=== PATIENT | female | born 1970 | race Caucasian/White ===

== ENCOUNTER 2018-12-14 13:56 | Outpatient (CLI) | payer OTHER ==
[2018-12-14] MEDS ORDERED: LOSA25TA25 PO (14:31)
== END 2018-12-14 23:59 | disposition home or self-care (01) ==
LOC: STAR 13:56
PROVIDERS: ATTEND Specialist
DX: Z02.9 Encounter for administrative examinations, unspecified (principal)

== ENCOUNTER 2018-12-19 05:36 | Day surgery (SDC) | payer OTHER ==
[~2018-12-19] VITALS: Ht 166.4 cm; Wt 77.5 kg
[~2018-12-19 05:36] MED LIST: LOSA25TA25 PO
[2018-12-19 06:40] LABS: HCG UR SG 1.023 (1.003-1.030)
[2018-12-19] MEDS ORDERED: LACTATED RINGERS 1,000 ML IV SCH (06:42)
[2018-12-19] MEDS ORDERED: BUPIVACAINE/PF 0.25% ONE (06:50)
[2018-12-19] MEDS ORDERED: FLUORESCEIN SODIUM 500 MG/5 ML ONE (07:12)
[2018-12-19] MEDS ORDERED: GABAPENTIN 300 MG CAPSULE ONE (07:16)
[2018-12-19] MEDS ORDERED: MIDAZOLAM 1 MG/ML, 2ML ONE (07:16)
[2018-12-19] MEDS ORDERED: FENTANYL PF 250 MCG/5ML ONE (07:17)
[2018-12-19] MEDS ORDERED: ROCURONIUM 10MG/ML,5ML ONE (07:17)
[2018-12-19] MEDS ORDERED: PROPOFOL 10 MG/ML, 20ML ONE (07:18)
[2018-12-19] MEDS ORDERED: SUCCINYLCHOLINE 20 MG/ML, 10ML ONE (07:18)
[2018-12-19 07:19] LABS: ALBUMIN 3.9 g/dL (3.4-5.0); ANION GAP 5 mmol/L (5-15); CALCIUM 9.2 mg/dL (8.5-10.1); CHLORIDE 107 mmol/L (98-107)
[2018-12-19] MEDS ORDERED: LIDOCAINE-MPF 2% ,5ML ONE (07:19)
[2018-12-19] MEDS ORDERED: DEXAMETHASONE 4 MG/ML, 1ML ONE (07:22)
[2018-12-19 07:23] LABS: CREATININE 0.88 mg/dL (0.55-1.02)
[2018-12-19 07:24] LABS: ALANINE AMINOTRANSFERASE 15 U/L (12-78); ALKALINE PHOSPHATASE 48 U/L (45-117); BILIRUBIN,TOTAL 0.4 mg/dL (0.2-1.0); TOTAL PROTEIN 7.3 g/dL (6.4-8.2)
[2018-12-19] MEDS ORDERED: GABAPENTIN 300 MG CAPSULE PO ONE (07:30)
[2018-12-19] MEDS ORDERED: ACETAMINOPHEN 500 MG TABLET PO ONE ×2 (07:30→13:00)
[2018-12-19] MEDS ORDERED: DIAZEPAM 5 MG TABLET PO ONE (07:30)
[2018-12-19] MEDS ORDERED: SCOPOLAMINE PATCH, 1.5MG PATCH.TD72 TD ONE (07:30)
[2018-12-19] MEDS ORDERED: GLYCOPYRROLATE 0.2MG/1ML, 5ML ONE (07:34)
[2018-12-19] MEDS ORDERED: NEOSTIGMINE 1 MG/ML, 10ML ONE (07:34)
[2018-12-19] MEDS ORDERED: CEFOTETAN 2 GM ONE (07:34)
[2018-12-19] MEDS ORDERED: KETOROLAC 30 MG/1 ML ONE (07:34)
[2018-12-19] MEDS ORDERED: PROMETHAZINE 25 MG/ML, 1ML IV PRN (08:00)
[2018-12-19] MEDS ORDERED: EPHEDRINE 50 MG/ML, 1ML IVPush PRN (08:00)
[2018-12-19] MEDS ORDERED: FENTANYL PF 100 MCG/2ML IV PRN (08:00)
[2018-12-19] MEDS ORDERED: HALOPERIDOL 5 MG/ML IV PRN (08:00)
[2018-12-19] MEDS ORDERED: hydrALAzine 20 MG/ML, 1ML IV PRN (08:00)
[2018-12-19] MEDS ORDERED: MORPHINE SULFATE 4 MG/ML, 1ML IVPush PRN (08:00)
[2018-12-19] MEDS ORDERED: ONDANSETRON 2MG/ML, 2ML IV PRN (08:00)
[2018-12-19] MEDS ORDERED: OXYcodone 5 MG/5 ML ORAL.SOL UDC PO PRN (08:00)
[2018-12-19] MEDS ORDERED: PROMETHAZINE 12.5 MG SUPP PR PRN (08:00)
[2018-12-19] MEDS ORDERED: LABETALOL 5MG/ML, 20ML IV PRN (08:00)
[2018-12-19] MEDS ORDERED: ALBUTEROL SULFATE 2.5 MG/3 ML NPPB PRN (08:00)
[2018-12-19] MEDS ORDERED: LORazepam 2 MG/ML, 1ML IVPush PRN (08:00)
[2018-12-19] MEDS ORDERED: MEPERIDINE/PF 25MG/0.5ML IVPush PRN (08:00)
[2018-12-19] MEDS ORDERED: ONDANSETRON ODT 8 MG PO PRN (08:00)
[2018-12-19] MEDS ORDERED: MIDAZOLAM 1 MG/ML, 2ML IV PRN (08:00)
[2018-12-19] MEDS ORDERED: ONDANSETRON 2MG/ML, 2ML ONE (09:17)
[2018-12-19] MEDS ORDERED: FENTANYL PF 100 MCG/2ML ONE (09:21)
[2018-12-19] MEDS ORDERED: MEPERIDINE/PF 25MG/ML,1ML ONE (09:49)
[2018-12-19] MEDS ORDERED: OXYcodone 5 MG/5 ML ORAL.SOL UDC ONE (09:50)
[2018-12-19] MEDS ORDERED: HYDROmorphone 1 MG/ML, 1ML VIAL ONE (09:50)
[2018-12-19] MEDS: HYDROmorphone 2 MG/ML, 1ML IVPush PRN ×2 (09:59→10:10)
[2018-12-19] MEDS ORDERED: LORazepam 2 MG/ML, 1ML ONE (10:01)
[2018-12-19] MEDS ORDERED: OXYcodone/APAP 5/325MG TABLET PO PRN (12:00)
== END 2018-12-19 15:10 | disposition home or self-care (01) ==
LOC: OUT 05:36
PROVIDERS: ATTEND Specialist
DX: D25.0 Submucous leiomyoma of uterus (principal); N83.8 Other noninflammatory disorders of ovary, fallopian tube and broad ligament; N92.0 Excessive and frequent menstruation with regular cycle; N94.6 Dysmenorrhea, unspecified; D64.9 Anemia, unspecified; I10 Essential (primary) hypertension; E78.2 Mixed hyperlipidemia; Z98.890 Other specified postprocedural states; Z72.89 Other problems related to lifestyle; Z88.1 Allergy status to other antibiotic agents; Z88.5 Allergy status to narcotic agent
CPT/HCPCS: 36415; 58571; 80053; 81025; 88307; J0330; J1100; J1170; J1885; J2060; J2175; J2250; J2405; J2704; J2710; J3010; J3490; J7120